=== PATIENT | male | born 1995 | race Caucasian/White ===

== ENCOUNTER → 2018-07-03 11:17 | Outpatient (POV) | payer OTHER, SELFPAY ==
[2018-07-03 11:43] VITALS: BP 138/83; PULSE 73; RESP 18; O2SAT 98
--- NOTE | 2018-07-03 13:22 | HMH.PMCON ---
Assessment and Plan (1) Degenerative disc disease Current visit: Yes Status: Chronic Qualifiers: Spinal region: lumbar Qualified Code(s): M51.36 - Other intervertebral disc degeneration, lumbar region Category: Medical - Assessment and plan all Dx Assessment and Plan for all problems:: We will schedule an L4-L5 lumbar epidural steroid injection for the patient. I believe it would be beneficial given his symptomology. He was sent here by Dr. Max for this. Patient's not on any anticoagulation therapy and is continuing a home stretching program. I will follow-up with him after his injection. This note was dictated using voice recognition software and may contain errors or omissions HPI - Data of Consult Consult date: 07/03/18 Requesting Physician: Denise Hernandez APRN Primary Care Provider: Referral Provider, MD - Consult Narrative Reason for consult: Back pain History of present illness: Mr. Jay is a 22 year old male comes today for consultation in regards to his low back pain. Patient has low back pain and leg pain. Patient states that laying increases his pain while rest decreases his pain. 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 Patient does have an MRI showing degenerative changes. Patient's tried and failed physical therapy Aleve and ibuprofen. Patient was referred to us from neurosurgery for a lumbar epidural. Patient rates his pain a 5 out of 10 today. Patient is not on any anticoagulation therapy. Patient is continuing a home stretching regimen. CC: Denise Hernandez APRN [facility] History I have reviewed the patient's past medical history: Yes - *Social History Smoking Status: Never smoker Alcohol Intake: never Occupational Status: employed Housing: house - Psychiatric History Expresses thoughts of harming self/others: None Suicide Plan Description: No Plan *Family Hx:: Unable to obtain Review of Systems - Review of Systems ROS General: no recent weight change, no fever, no sleep disturbances Respiratory: no cough, no shortness of air, no recurring pulmonary infections Cardiovascular/Peripheral Vascular: No chest pain, No palpitations, no edema, no shortness of breath. Gastrointestinal: no incontinence, normal bowel movements reported Genitourinary: no incontinence Musculoskeletal: Back pain, leg pain Psychiatric: normal mood/ affect Neurological: [denies weakness in extremities], [denies balance issues] Objective Vital signs: Pulse Resp BP Pulse Ox 73 18 138/83 98 07/03/18 11:43 07/03/18 11:43 07/03/18 11:43 07/03/18 11:43 Narrative: Physical Exam General: Alert and oriented x3, no acute distress, pleasant and cooperative, [on room air] Lungs: Resps E/U, Symmetrical chest expansion, Eyes: PERRL Musculoskeletal: Flexion and extension of lumbar spine somewhat guarded secondary to pain, deep tendon reflexes normal, strength in upper and lower extremities [5/5], slightly antalgic gait noted, positive straight leg raise test bilaterally at 30 degrees. Neurological: speech clear, paper spooler equal, no gross sensory deficits Opioid Risk Tool - Opioid Risk Tool-Male Family hx alcohol abuse: N Family hx illegal drugs: N Family hx rx drug abuse: N Personal hx alcohol abuse: N Personal hx illegal drugs: N Personal hx rx drug abuse: N Age: 16-45 Hx of sexual abuse: N Mental health issues-ADD,OCD,Bipolar, etc: Y Hx of depression: Y Male Risk Score: 4
--- NOTE | 2018-07-03 13:25 | P.CONS_ITS ---
Assessment and Plan (1) Degenerative disc disease Current visit: Yes Status: Chronic Qualifiers: Spinal region: lumbar Qualified Code(s): M51.36 - Other intervertebral disc degeneration, lumbar region Category: Medical - Assessment and plan all Dx Assessment and Plan for all problems:: We will schedule an L4-L5 lumbar epidural steroid injection for the patient. I believe it would be beneficial given his symptomology. He was sent here by Dr. Max for this. Patient's not on any anticoagulation therapy and is continuing a home stretching program. I will follow-up with him after his injection. This note was dictated using voice recognition software and may contain errors or omissions HPI - Data of Consult Consult date: 07/03/18 Requesting Physician: Denise Hernandez APRN Primary Care Provider: Referral Provider, MD - Consult Narrative Reason for consult: Back pain History of present illness: Mr. Jay is a 22 year old male comes today for consultation in regards to his low back pain. Patient has low back pain and leg pain. Patient states that laying increases his pain while rest decreases his pain. 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 Patient does have an MRI showing degenerative changes. Patient's tried and failed physical therapy Aleve and ibuprofen. Patient was referred to us from neurosurgery for a lumbar epidural. Patient rates his pain a 5 out of 10 today. Patient is not on any anticoagulation therapy. Patient is continuing a home stretching regimen. CC: Denise Hernandez APRN [facility] History I have reviewed the patient's past medical history: Yes - *Social History Smoking Status: Never smoker Alcohol Intake: never Occupational Status: employed Housing: house - Psychiatric History Expresses thoughts of harming self/others: None Suicide Plan Description: No Plan *Family Hx:: Unable to obtain Review of Systems - Review of Systems ROS General: no recent weight change, no fever, no sleep disturbances Respiratory: no cough, no shortness of air, no recurring pulmonary infections Cardiovascular/Peripheral Vascular: No chest pain, No palpitations, no edema, no shortness of breath. Gastrointestinal: no incontinence, normal bowel movements reported Genitourinary: no incontinence Musculoskeletal: Back pain, leg pain Psychiatric: normal mood/ affect Neurological: [denies weakness in extremities], [denies balance issues] Objective Vital signs: Pulse Resp BP Pulse Ox 73 18 138/83 98 07/03/18 11:43 07/03/18 11:43 07/03/18 11:43 07/03/18 11:43 Narrative: Physical Exam General: Alert and oriented x3, no acute distress, pleasant and cooperative, [on room air] Lungs: Resps E/U, Symmetrical chest expansion, Eyes: PERRL Musculoskeletal: Flexion and extension of lumbar spine somewhat guarded secondary to pain, deep tendon reflexes normal, strength in upper and lower extremities [5/5], slightly antalgic gait noted, positive straight leg raise test bilaterally at 30 degrees. 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
== END ==
PROVIDERS: Visit Provider Clinical Nurse Specialist Family Health
DX: M51.36 Other intervertebral disc degeneration, lumbar region (principal)
CPT/HCPCS: 99202

== ENCOUNTER → 2018-09-03 15:03 | Outpatient (POV) | payer OTHER, SELFPAY ==
[2018-09-03 15:03] VITALS: BP 190/98; PULSE 87; RESP 18; O2SAT 98; BMI 29.8
--- NOTE | 2018-09-03 15:25 | P.CONS_ITS ---
[facility] Pain Management SOAP Note Subjective:: Patient is a pleasant 23-year-old white male who we are treating for low back pain. Patient is following up after lumbar epidural steroid injection. Patient states his pain has improved since his last injection. He was pain-free for a week. Patient states that his pain has started to return slightly. Patient is interested in pursuing another injection. ROS General: no recent weight change, no fever, no sleep disturbances Respiratory: no cough, no shortness of air, no recurring pulmonary infections Cardiovascular/Peripheral Vascular: No chest pain, No palpitations, no edema, no shortness of breath. Gastrointestinal: no incontinence, normal bowel movements reported Genitourinary: no incontinence Musculoskeletal: Low back pain, leg pain Psychiatric: normal mood/ affect Neurological: [denies weakness in extremities], [denies balance issues] Objective:: Physical Exam General: Alert and oriented x3, no acute distress, pleasant and cooperative, [on room air] Lungs: Resps E/U, Symmetrical chest expansion, Eyes: PERRL Musculoskeletal: Flexion and extension of lumbar spine somewhat guarded secondary to pain, deep tendon reflexes normal, strength in upper and lower extremities [5/5], normal gait noted Neurological: speech clear, buckle strap drum operator equal, no gross sensory deficits Assessment:: degenerative Disc disease lumbar spine with lumbar radiculopathy symptoms Plan:: We will schedule another L4-L5 lumbar epidural steroid injection for the patient. Patient also has a history of migraines. Patient and I discussed if he is interested I would be happy to refer him to neurology. Patient is continuing his home stretching program. He is on anti-inflammatories. He is not on any anticoagulation therapy. Dr. Campos has reviewed this note and agrees with this plan of care. This note was dictated using voice recognition software and may contain errors or omissions
== END ==
PROVIDERS: PCP Family Medicine; Visit Provider Clinical Nurse Specialist Family Health
DX: M51.16 Intervertebral disc disorders with radiculopathy, lumbar region (principal)
CPT/HCPCS: 99213

== ENCOUNTER → 2018-09-28 09:47 | Outpatient (POV) | payer OTHER, SELFPAY ==
[2018-09-28 10:00] VITALS: BP 152/89; PULSE 83; RESP 18; O2SAT 98; BMI 35.2
--- NOTE | 2018-09-28 11:13 | P.CONS_ITS ---
[facility] Pain Management SOAP Note Subjective:: Patient is a pleasant 23-year-old white male who we are treating for low back pain. He has had a previous lumbar epidural steroid injection with significant relief for approximately 2 weeks. He was 80% better. His pain is slowly starting to return. We are seeking approval for repeat lumbar epidural steroid injection. Since his pain is been limiting his function recently we will start him on redness on 10 mg twice a day for 5 days. I have also talked to him about taking ibuprofen and Tylenol together. Objective:: Alert and oriented x3 no acute distress. Patient does have an antalgic gait. Motor strength of the lower extremities is 5/5. There is no gross sensory deficit. Assessment:: Degenerative disc disease of lumbar spine with increasing low back pain. Plan:: We will give him prednisone 10 mg 1 tablet twice a day. We will also encourage him to take ibuprofen and Tylenol together. He is to continue with his therapy at home. I have also encouraged weight loss. We will plan on a repeat lumbar epidural steroid injection when approved.
== END ==
PROVIDERS: PCP Family Medicine; Visit Provider Clinical Nurse Specialist Family Health
DX: M51.36 Other intervertebral disc degeneration, lumbar region (principal)
CPT/HCPCS: 99212

== ENCOUNTER → 2018-11-27 08:56 | Outpatient (POV) | payer OTHER, SELFPAY ==
[2018-11-27 09:13] VITALS: BP 148/98; PULSE 89; RESP 18; O2SAT 99; BMI 31.1
--- NOTE | 2018-11-27 09:24 | HMH.PAINSOAP ---
[facility] Pain Management SOAP Note Subjective:: Patient is a very pleasant 23-year-old white male who presents today after lumbar epidural steroid injection. Patient states he did not get any relief from this. He rates his pain a 8 out of 10. Patient states that leaning forward is the only way to get relief. Patient cannot stand for long periods of time. Patient does have an MRI showing spinal stenosis at L4-L5 L5-S1. We will send him for flexion and extension x-rays today to see if he may be a vertiflex procedure. ROS General: no recent weight change, no fever, no sleep disturbances Respiratory: no cough, no shortness of air, no recurring pulmonary infections Cardiovascular/Peripheral Vascular: No chest pain, No palpitations, no edema, no shortness of breath. Gastrointestinal: no incontinence, normal bowel movements reported Genitourinary: no incontinence Musculoskeletal: Back pain Psychiatric: normal mood/ affect Neurological: [denies weakness in extremities], [denies balance issues] Objective:: Physical Exam General: Alert and oriented x3, no acute distress, pleasant and cooperative, [on room air] Lungs: Resps E/U, Symmetrical chest expansion, Eyes: PERRL Musculoskeletal: Flexion and extension of lumbar spine somewhat guarded secondary to pain, deep tendon reflexes normal, strength in upper and lower extremities [5/5], normal gait noted Neurological: speech clear, 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 Patient has tried and failed physical therapy along with injective therapy. He is continuing home stretching therapy. Dr. Campos has reviewed this note and agrees with this plan of care. This note was dictated using voice recognition software and may contain errors or omissions
--- NOTE | 2018-11-27 09:30 | P.CONS_ITS ---
[facility] Pain Management SOAP Note Subjective:: Patient is a very pleasant 23-year-old white male who presents today after lumbar epidural steroid injection. Patient states he did not get any relief from this. He rates his pain a 8 out of 10. Patient states that leaning forward is the only way to get relief. Patient cannot stand for long periods of time. Patient does have an MRI showing spinal stenosis at L4-L5 L5-S1. We will send him for flexion and extension x-rays today to see if he may be a vertiflex procedure. ROS General: no recent weight change, no fever, no sleep disturbances Respiratory: no cough, no shortness of air, no recurring pulmonary infections Cardiovascular/Peripheral Vascular: No chest pain, No palpitations, no edema, no shortness of breath. Gastrointestinal: no incontinence, normal bowel movements reported Genitourinary: no incontinence Musculoskeletal: Back pain Psychiatric: normal mood/ affect Neurological: [denies weakness in extremities], [denies balance issues] Objective:: Physical Exam General: Alert and oriented x3, no acute distress, pleasant and cooperative, [on room air] Lungs: Resps E/U, Symmetrical chest expansion, Eyes: PERRL Musculoskeletal: Flexion and extension of lumbar spine somewhat guarded secondary to pain, deep tendon reflexes normal, strength in upper and lower extremities [5/5], normal gait noted Neurological: speech clear, bankruptcy paralegal equal, no gross sensory deficits Assessment:: Degenerative disc disease lumbar spine with lumbar spinal stenosis and neurogenic claudication Plan:: We will send the patient for flexion and extension x-rays to determine if he is a candidate for a vertiflex procedure. Patient has tried and failed physical therapy along with injective therapy. He is continuing home stretching therapy. Dr. Campos has reviewed this note and agrees with this plan of care. This note was dictated using voice recognition software and may contain errors or omissions
--- NOTE | 2018-11-27 09:45 | XR_ITS ---
EXAM: XR lumbar spine 2-3V HISTORY: ITS.REASON: BACK PAIN ORDERING PHYSICIAN: Denise Hernandez PATIENT AGE: 23 years COMPARISON: None FINDINGS: Flexion and extension and AP views are obtained of the lumbar spine. There is no abnormal subluxation in flexion or extension. Kyphosis is persistent in the thoracic spine and upper lumbar spine in extension. There is a well-circumscribed lucency along the inferior facet of L4 on the right consistent with either an old injury or accessory center of ossification. There are 6 lumbar segments. IMPRESSION: 1. Kyphosis of the thoracic or lumbar spine persistent in extension 2. No abnormal subluxation. 3. Old fracture versus accessory center of ossification involving the inferior facet of L4
== END ==
LOC: SC.PAIN 08:57 → RAD 09:40
PROVIDERS: PCP Family Medicine; Visit Provider Clinical Nurse Specialist Family Health
DX: M54.5 Low back pain (principal)
CPT/HCPCS: 72100

== ENCOUNTER → 2019-01-11 08:40 | Outpatient (POV) | payer OTHER, SELFPAY ==
--- NOTE | 2019-01-11 09:55 | P.CONS_ITS ---
[facility] Pain Management SOAP Note Subjective:: This patient is a pleasant 23-year-old white male who is status post superion vertiflex implant at L4-L5 for spinal stenosis with neurogenic claudication. He is doing much better. He is able to sit without having any pains down his legs. He is able to stand longer and walk further with minimal pain. He does have some weakness in his legs. He does need some physical therapy and strengthening. Overall he is doing much better and is released to go back to work. Objective:: Alert and oriented x3 in no acute distress. He does have a normal gait. Motor strength of the lower extremities is 5/5. There is no gross sensory deficit. Assessment:: Degenerative disc disease of lumbar spine with lumbar radiculopathy symptoms with spinal stenosis with neurogenic claudication now status post Superion Vertiflex implant Plan:: I am very pleased with his progress. He is doing much better functionally. He is improved greatly with minimal pain. He is released to go back to work. We will enroll him in physical therapy for some strengthening exercises for long- term benefit to help with his low back and leg pain.
== END ==
PROVIDERS: Visit Provider Anesthesiology
DX: M48.062 Spinal stenosis, lumbar region with neurogenic claudication (principal)
CPT/HCPCS: 99211

== ENCOUNTER → 2019-01-21 08:41 | Outpatient (POV) | payer OTHER, SELFPAY ==
[2019-01-21 08:51] VITALS: BP 157/98; PULSE 84; RESP 18; O2SAT 98; BMI 31.1
--- NOTE | 2019-01-21 08:53 | HMH.PAINSOAP ---
[facility] Pain Management SOAP Note Subjective:: Patient is a pleasant 23-year-old white male who presents today for follow-up post vertiflex implant at L4-L5 for spinal stenosis with neurogenic claudication. he reports that he is feeling much better, able to stand and perform daily activities with less pain. He does rate his pain an 8 out of 10 today, but says that the pain is much more bearable now . The patient will begin physical therapy at [facility] upcoming week. He is also taking anti-inflammatories and continuing exercise regimen at home. ROS General: no recent weight change, no fever, no sleep disturbances Respiratory: no cough, no shortness of air, no recurring pulmonary infections Cardiovascular/Peripheral Vascular: No chest pain, No palpitations, no edema, no shortness of breath. Gastrointestinal: no incontinence, normal bowel movements reported Genitourinary: no incontinence Musculoskeletal: Back pain, leg pain Psychiatric: normal mood/ affect, [denies depression], [denies anxiety] Neurological: [denies weakness in extremities], [denies balance issues] Objective:: Physical Exam General: Alert and oriented x3, no acute distress, pleasant and cooperative, [on room air] Lungs: Resps E/U, Symmetrical chest expansion, Eyes: PERRL Musculoskeletal: Flexion and extension of lumbar spine somewhat guarded secondary to pain, deep tendon reflexes normal, strength in upper and lower extremities [5/5], normal gait noted Neurological: 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 Spinal stenosis with neurogenic claudication, status post Superion Vertiflex Implant Plan:: Patient is doing much better overall. He will begin physical therapy this upcoming week. Continue anti-inflammatories and an exercise regimen at home. Patient will follow-up as needed. He has been instructed to call the office if he has any questions or concerns. Dr. Campos has reviewed this note and agrees with this plan of care. This note was dictated using voice recognition software and may contain errors or omissions
--- NOTE | 2019-01-21 08:56 | P.CONS_ITS ---
[facility] Pain Management SOAP Note Subjective:: Patient is a pleasant 23-year-old white male who presents today for follow-up post vertiflex implant at L4-L5 for spinal stenosis with neurogenic claudication. he reports that he is feeling much better, able to stand and perform daily activities with less pain. He does rate his pain an 8 out of 10 t payal, but says that the pain is much more bearable now . The patient will begin physical therapy at [facility] upcoming week. He is also taking anti-inflammatories and continuing exercise regimen at home. ROS General: no recent weight change, no fever, no sleep disturbances Respiratory: no cough, no shortness of air, no recurring pulmonary infections Cardiovascular/Peripheral Vascular: No chest pain, No palpitations, no edema, no shortness of breath. Gastrointestinal: no incontinence, normal bowel movements reported Genitourinary: no incontinence Musculoskeletal: Back pain, leg pain Psychiatric: normal mood/ affect, [denies depression], [denies anxiety] Neurological: [denies weakness in extremities], [denies balance issues] Objective:: Physical Exam General: Alert and oriented x3, no acute distress, pleasant and cooperative, [on room air] Lungs: Resps E/U, Symmetrical chest expansion, Eyes: PERRL Musculoskeletal: Flexion and extension of lumbar spine somewhat guarded secondary to pain, deep tendon reflexes normal, strength in upper and lower extremities [5/5], normal gait noted Neurological: speech clear, 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 Spinal stenosis with neurogenic claudication, status post Superion Vertiflex Implant Plan:: Patient is doing much better overall. He will begin physical therapy this upcoming week. Continue anti-inflammatories and an exercise regimen at home. Patient will follow-up as needed. He has been instructed to call the office if he has any questions or concerns. Dr. Campos has reviewed this note and agrees with this plan of care. This note was dictated using voice recognition software and may contain errors or omissions
== END ==
PROVIDERS: PCP Family Medicine; Visit Provider Clinical Nurse Specialist Family Health
DX: M48.062 Spinal stenosis, lumbar region with neurogenic claudication (principal)
CPT/HCPCS: 99212

== ENCOUNTER → 2019-01-29 08:02 | Outpatient (POV) | payer OTHER, SELFPAY ==
[2019-01-29 08:23] VITALS: BP 180/90; PULSE 87; RESP 18; O2SAT 98; BMI 31.1
--- NOTE | 2019-01-29 09:11 | HMH.PAINSOAP ---
[facility] Pain Management SOAP Note Subjective:: Patient is a pleasant 23-year-old white male who presents today for follow-up postoperative Vertiflex implant at L4-L5 for spinal stenosis and neurogenic claudication. The patient says that he is having increased pain rating it a 9 out of 10 today. He says that the pain is worse with standing and walking, but relieved with heat. He has not been able to begin physical therapy, but plans to start next week. The patient says that he knows he will have some pain, but was not if the pain he is experiencing is normal . He is taking anti-inflammatories and continuing a home stretching program. ROS General: no recent weight change, no fever, no sleep disturbances Respiratory: no cough, no shortness of air, no recurring pulmonary infections Cardiovascular/Peripheral Vascular: No chest pain, No palpitations, no edema, no shortness of breath. Gastrointestinal: no incontinence, normal bowel movements reported Genitourinary: no incontinence Musculoskeletal: Back pain Psychiatric: normal mood/ affect, [denies depression], [denies anxiety] Neurological: [denies weakness in extremities], [denies balance issues] Objective:: Physical Exam General: Alert and oriented x3, no acute distress, pleasant and cooperative, [on room air] Lungs: Resps E/U, Symmetrical chest expansion, Eyes: PERRL Musculoskeletal: Flexion and extension of lumbar spine somewhat guarded secondary to pain, deep tendon reflexes normal, strength in upper and lower extremities [5/5], [abnormal gait noted] Neurological: speech clear, program management specialist equal, no gross sensory deficits Assessment:: Degenerative disc disease lumbar spine with lumbar radiculopathy. Spinal stenosis with neurogenic claudication, status post. Superion Vertiflex implant Plan:: We will start the patient on Lyrica 75 mg 1 tablet p.o. at bedtime x1 week. The patient will then start Lyrica 75 mg 1 p.o. 3 times daily. He is been instructed to call the office in 2 weeks if he is continuing to have pain. He will begin physical therapy next week at [facility]. Dr. Campos has reviewed this note and agrees with this plan of care. This note was dictated using voice recognition software and may contain errors or omissions
--- NOTE | 2019-01-29 09:14 | P.CONS_ITS ---
[facility] SOAP Note Subjective:: Patient is a pleasant 23-year-old white male who presents today for follow-up postoperative Vertiflex implant at L4-L5 for spinal stenosis and neurogenic claudication. The patient says that he is having increased pain rating it a 9 out of 10 today. He says that the pain is worse with standing and walking, but relieved with heat. He has not been able to begin physical therapy, but plans to start next week. The patient says that he knows he will have some pain, but was not if the pain he is experiencing is normal . He is taking anti- inflammatories and continuing a home stretching program. ROS General: no recent weight change, no fever, no sleep disturbances Respiratory: no cough, no shortness of air, no recurring pulmonary infections Cardiovascular/Peripheral Vascular: No chest pain, No palpitations, no edema, no shortness of breath. Gastrointestinal: no incontinence, normal bowel movements reported Genitourinary: no incontinence Musculoskeletal: Back pain Psychiatric: normal mood/ affect, [denies depression], [denies anxiety] Neurological: [denies weakness in extremities], [denies balance issues] Objective:: Physical Exam General: Alert and oriented x3, no acute distress, pleasant and cooperative, [on room air] Lungs: Resps E/U, Symmetrical chest expansion, Eyes: PERRL Musculoskeletal: Flexion and extension of lumbar spine somewhat guarded secondary to pain, deep tendon reflexes normal, strength in upper and lower extremities [5/5], [abnormal gait noted] Neurological: speech clear, cannoneer equal, no gross sensory deficits Assessment:: Degenerative disc disease lumbar spine with lumbar radiculopathy. Spinal stenosis with neurogenic claudication, status post. Superion Vertiflex implant Plan:: We will start the patient on Lyrica 75 mg 1 tablet p.o. at bedtime x1 week. The patient will then start Lyrica 75 mg 1 p.o. 3 times daily. He is been instructed to call the office in 2 weeks if he is continuing to have pain. He will begin physical therapy next week at [facility]. Dr. Campos has reviewed this note and agrees with this plan of care. This note was dictated using voice recognition software and may contain errors or omissions
--- NOTE | 2019-03-18 15:37 | PC.NURSE ---
GABAPENTIN 100MG TID WITH 2 REFILLS CALLED INTO [facility] PER PROVIDER ORDER
== END ==
PROVIDERS: PCP Family Medicine; Visit Provider Clinical Nurse Specialist Family Health
DX: M51.16 Intervertebral disc disorders with radiculopathy, lumbar region (principal); M48.062 Spinal stenosis, lumbar region with neurogenic claudication; Z98.890 Other specified postprocedural states
CPT/HCPCS: 99212